=== PATIENT | female | born 1950 | race Caucasian/White ===

== ENCOUNTER → 2021-03-07 17:09 | Outpatient (CLI) | payer MEDICARE, OTHER, SELFPAY ==
--- NOTE | ~2021-03-07 | MR_ITS ---
EXAMINATION: MR lumbar spine wo con DATE: 03/07/2021 18:03 INDICATION: Low back pain TECHNIQUE: Magnetic resonance imaging (MRI) of the lumbar spine was performed without intravenous con trast. Sequences included sagittal T2-weighted FSE, sagittal T2-weighted FS FSE, sagittal T1-weighted FSE, and axial T2-weighted FSE. COMPARISON: None FINDINGS: 2 mm anterolisthesis L4 on L5. 5 mm left lateral listhesis of L2 on L3. Vertebral body heights are no rmal. Schmorl's nodes along the L2-L3 and L4-L5 endplates. T1 hyperintense hemangioma at T10. Severe disc height loss with fibrofatty endplate changes at L2-L3. Moderate disc height loss with additional mild fibrofatty and fibrovascular degenerative endplate changes at L4-L5. Moderate to severe disc he ight loss at L5-S1. Disc desiccation and mild disc height loss at T12-L1, L1-L2 and L3-L4. The conus medullaris terminates at L1. There is normal signal in the caudal spinal cord. Paravertebral soft tis sues are unremarkable. The following disc levels are specifically discussed: T111-T2: Small central disc protrusion. There is mild bilateral facet joint osteoarthritis. There is minimal bilateral neural foraminal stenosis. There is mild central canal stenosis. T12-L1: The disc does not extend beyond the endplate margin. There is mild bilateral facet joint oste oarthritis. There is no neural foraminal stenosis. There is no central canal stenosis. L1-L2: Disc is mildly bulging. There is mild bilateral facet joint osteoarthritis. There is mild bila teral neural foraminal stenosis. There is minimal central canal stenosis. L2-L3: Diffuse disc bulge with annular fissure. There is hypertrophy of the ligamentum flavum. There is moderate bilateral facet joint osteoarthritis. There is moderate left and severe right neural fora prem stenosis. There is severe central canal stenosis. L3-L4: Disc is mildly bulging with annular fissure. There is hypertrophy of the ligamentum flavum. Th ere is minimal left and moderate right facet joint osteoarthritis. 10 x 4 x 9 mm synovial cyst at the medial margin of the right facet joint. There is moderate left and mild to moderate right neural for aminal stenosis. There is mild to moderate central canal stenosis. L4-L5: Disc is bulging with annular fissure. There is hypertrophy of the ligamentum flavum. There is severe bilateral facet joint osteoarthritis. There is moderate right and moderate to severe left neur al foraminal stenosis. There is mild central canal stenosis with more prominent narrowing of the left and right lateral recesses. L5-S1: Disc is bulging with annular fissure. There is moderate bilateral facet joint osteoarthritis. There is moderate bilateral neural foraminal stenosis. There is minimal central canal stenosis. IMPRESSION: 1. Severe lumbar spondylosis most notable for severe central canal stenosis and severe right-sided ne ural foraminal stenosis at L3-L4. Reviewed, dictated and finalized at location A. IMPRESSION: 1. Severe lumbar spondylosis most notable for severe central canal stenosis and severe right-sided neural foraminal stenosis at L3-L4.
== END ==
PROVIDERS: PCP Internal Medicine; Visit Provider Internal Medicine
DX: M54.50 Low back pain, unspecified (principal); M47.816 Spondylosis without myelopathy or radiculopathy, lumbar region
CPT/HCPCS: 72148